=== PATIENT | male | born 2000 | race Caucasian/White ===

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

== ENCOUNTER 2023-09-15 11:02 | Emergency (ER) | payer OTHER ==
[2023-09-15 11:20] VITALS: BP 118/75; PULSE 76; RESP 18; TEMP 97.6
[2023-09-15] MEDS ORDERED: NAPROXEN 500 MG TABLET PO ONE (11:28)
[2023-09-15] MEDS ORDERED: NAPROXEN 500 MG TABLET ONE (11:30)
== END 2023-09-15 13:05 | disposition home or self-care (01) ==
LOC: JERFT 11:02
DX: M79.672 Pain in left foot (principal); M79.89 Other specified soft tissue disorders; W23.0XXA Caught, crushed, jammed, or pinched between moving objects, initial encounter; Y92.810 Car as the place of occurrence of the external cause
CPT/HCPCS: 73630-TC-LT; 99283-25